=== PATIENT | female | born 1970 | race African-American/Black ===

== ENCOUNTER 2016-09-08 16:11 | Emergency (ER) | payer BC ==
[~2016-09-08] VITALS: Ht 152.4 cm; Wt 68.0 kg
[~2016-09-08 16:11] MED LIST: ALBU8.5H6 IH; BYSTOLIC5 MG PO; TRAM50TA PO
[2016-09-08 16:26] VITALS: BP 187/94
[2016-09-08] MEDS ORDERED: IV NORMAL SALINE 1000ML BAG 1,000 ML IV ONE (16:30)
[2016-09-08] MEDS ORDERED: PROCHLORPERAZINE 10 MG/2 ML VIAL. IV ONE (16:30)
[2016-09-08] MEDS ORDERED: diphenhydrAMINE 50 MG/ML VIAL IVP ONE (16:30)
[2016-09-08] MEDS ORDERED: KETOROLAC TROMETHAMINE 30 MG/ML INJ. IV ONE (16:30)
--- NOTE | 2016-09-08 16:40 | PHYS DOC ---
Past Medical History Past Medical History: Fibromyalgia, Hypertension, Migraines Past Surgical History: Cholecystectomy, Hysterectomy, Tonsillectomy Alcohol Use: None Drug Use: None Adult General Chief Complaint Chief Complaint: HEADACHE HPI HPI Patient is a 46 year old female who presents with headache. Patient reports onset of headache around noon today. Headache is generalized, throbbing/aching. Reports photophobia and phonophobia, nausea, blurred vision, numbness and tingling in her fingers bilaterally. She denies fevers or chills, neck stiffness , chest pain, shortness of breath, extremity weakness, edema. Not sudden in onset, not the worst headache of her life. Last similarly severe headache requiring emergency department visit was about one year ago. She has history of hypertension but has not been taking medication for at least 6 months. Also has history of migraines and fibromyalgia. Previously prescribed Topamax but does not currently have a prescription. She has a PCP at [facility]. Review of Systems Review of Systems Constitutional: Denies fever or chills Eyes: Reports blurred vision HENT: Denies nasal congestion or sore throat Respiratory: Denies cough or shortness of breath Cardiovascular: Denies chest pain or edema GI: Reports nausea. Denies abdominal pain, vomiting, bloody stools or diarrhea Musculoskeletal: Denies back pain or joint pain Integument: Denies rash or skin lesions Neurologic: Reports headache, denies focal weakness or sensory changes Current Medications Current Medications Current Medications Medications (Trade) Dose Ordered Sig/Antony Start Time Stop Time Status Last Admin Dose Admin Diphenhydramine HCl (Benadryl) 25 mg 1X ONCE 09/08/16 16:30 09/08/16 16:31 DC 09/08/16 17:19 25 MG Ketorolac Tromethamine (Toradol) 30 mg 1X ONCE 09/08/16 16:30 09/08/16 16:31 DC 09/08/16 17:18 30 MG Potassium Chloride (KCl Oral Soln) 40 meq 1X ONCE 09/08/16 18:00 09/08/16 18:01 DC 09/08/16 18:48 40 MEQ Prochlorperazine Edisylate (Compazine) 10 mg 1X ONCE 09/08/16 16:30 09/08/16 16:31 DC 09/08/16 17:18 10 MG Sodium Chloride 1,000 ml @ 1,000 mls/hr 1X ONCE 09/08/16 16:30 09/08/16 17:29 DC 09/08/16 16:30 1,000 MLS/HR Allergies Allergies Allergies Coded Allergies Type Severity Reaction Last Updated Verified No Known Drug Allergies 06/25/13 No Physical Exam Physical Exam Constitutional: Well developed, well nourished, no acute distress, non-toxic appearance. HENT: Normocephalic, atraumatic, bilateral external ears normal, oropharynx moist, nose normal. Eyes: PERRLA, EOMI, conjunctiva normal, no discharge. Neck: supple, no stridor. no nuchal rigidity Cardiovascular: RRR, no murmurs, no edema. Lungs & Thorax: LCTAB, no wheezing, no respiratory distress. Abdomen: soft, nontender, nondistended. Skin: Warm, dry, no erythema, no rash. Back: No tenderness. Extremities: No tenderness, no edema. Neurologic: Alert and oriented X 3, CN2-12 grossly intact, symmetric strength/ sensation to UE & LE, no focal deficits noted. Psychologic: Affect normal, judgement normal, mood normal. Current Patient Data Vital Signs Vital Signs Date Time Temp Pulse Resp B/P (MAP) Pulse Ox O2 Delivery O2 Flow Rate FiO2 09/08/16 16:26 97.8 76 20 187/94 (125) 97 Room Air 97.8 Lab Values Laboratory Tests Test 09/08/16 15:29 09/08/16 17:25 POC Urine HCG, Qualitative Hcg negative (Negative) White Blood Count 10.6 x10^3/uL (4.0-11.0) Red Blood Count 4.64 x10^6/uL (3.50-5.40) Hemoglobin 13.7 g/dL (12.0-15.5) Hematocrit 40.9 % (36.0-47.0) Mean Corpuscular Volume 88 fL (79-100) Mean Corpuscular Hemoglobin 30 pg (25-35) Mean Corpuscular Hemoglobin Concent 34 g/dL (31-37) Red Cell Distribution Width 13.7 % (11.5-14.5) Platelet Count 235 x10^3/uL (140-400) Neutrophils (%) (Auto) 86 % (31-73) H Lymphocytes (%) (Auto) 9 % (24-48) L Monocytes (%) (Auto) 4 % (0-9) Eosinophils (%) (Auto) 1 % (0-3) Basophils (%) (Auto) 0 % (0-3) Neutrophils # (Auto) 9.0 x10^3uL (1.8-7.7) H Lymphocytes # (Auto) 1.0 x10^3/uL (1.0-4.8) Monocytes # (Auto) 0.5 x10^3/uL (0.0-1.1) Eosinophils # (Auto) 0.1 x10^3/uL (0.0-0.7) Basophils # (Auto) 0.0 x10^3/uL (0.0-0.2) Segmented Neutrophils % 83 % (35-66) H Band Neutrophils % 2 % (0-9) Lymphocytes % 12 % (24-48) L Monocytes % 3 % (0-10) Toxic Granulation Slight Toxic Vacuolation Slight Platelet Estimate Adequate (ADEQUATE) Urine Collection Type Unknown Urine Color Straw Urine Clarity Clear Urine pH 7.5 Urine Specific [place] <=1.005 Urine Protein Negative mg/dL (NEG-TRACE) Urine Glucose (UA) Negative mg/dL (NEG) Urine Ketones (Stick) Negative mg/dL (NEG) Urine Blood Negative (NEG) Urine Nitrite Negative (NEG) Urine Bilirubin Negative (NEG) Urine Urobilinogen Dipstick 0.2 mg/dL (0.2 mg/dL) Urine Leukocyte Esterase Negative (NEG) Urine RBC 0 /HPF (0-2) Urine WBC 0 /HPF (0-4) Urine Squamous Epithelial Cells Few /LPF Urine Bacteria Few /HPF (0-FEW) Sodium Level 143 mmol/L (136-145) Potassium Level 3.3 mmol/L (3.5-5.1) L Chloride Level 106 mmol/L (98-107) Carbon Dioxide Level 28 mmol/L (21-32) Anion Gap 9 (6-14) Blood Urea Nitrogen 8 mg/dL (7-20) Creatinine 0.7 mg/dL (0.6-1.0) Estimated GFR (Cockcroft-Gault) 110.0 Glucose Level 124 mg/dL (70-99) H Calcium Level 8.9 mg/dL (8.5-10.1) Laboratory Tests 09/08/16 17:25 Laboratory Tests 09/08/16 17:25 EKG EKG [] Radiology/Procedures Radiology/Procedures PROCEDURE: CT HEAD WO CONTRAST Indication hypertension. Headache. Noncontrast images of the head were obtained. No prior imaging of the head is available. The study is very slightly degraded by motion. The calvarium appears unremarkable and the visualized paranasal sinuses appear normal. There is no subdural or epidural hematoma. Ventricles and sulci are normal. No mass or midline shift is seen. No hemorrhage is apparent. Acute intracranial finding is not seen. IMPRESSION: Slightly limited study. No acute intracranial finding PQRS Compliance Statement: One or more of the following individualized dose reduction techniques were utilized for this examination: 1. Automated exposure control 2. Adjustment of the mA and/or kV according to patient size 3. Use of iterative reconstruction technique DICTATED and SIGNED BY: BRIAN MISTRY MD DATE: 09/08/161655[] Course & Med Decision Making Course & Med Decision Making Pertinent Labs and Imaging studies reviewed. (See chart for details) Patient presents with headache & hypertension. Similar to previous migraine headache, but BP quite elevated. Offered CT to rule out more serious pathology & she did wish to proceed. This was negative for acute process though study was limited by movement. Gave IV fluids, compazine, benadryl, toradol. Her symptoms improved & she felt better. BP improved to 139/85. She would like to go home. Recommend rest, PO hydration, tylenol/ibuprofen for headache. She would like to resume topamax & bystolic, so I did write prescriptions for 2 week supply, make appointment with primary care within 2-3 days for follow up & skilled nursing management. Come back for worst headache of her life or sudden onset severe headache, chest pain, SOB, focal neuro deficit, any otherwise worsening condition. Discharged home in stable & improved condition. [] Dragon Disclaimer Dragon Disclaimer This electronic medical record was generated, in whole or in part, using a voice recognition dictation system. Departure Departure Impression: Primary Impression: Headache Additional Impressions: Essential hypertension Hypokalemia Disposition: 01 HOME, SELF-CARE Condition: IMPROVED Referrals: LUIS ALVARADO (PCP) Patient Instructions: Hypertension, [id number], Migraine Headache, Easy-to- Read Additional Instructions: You were seen in the emergency department today for headache. Tests here did not show a serious cause of symptoms. This may be recurrent severe migraine headache. Your symptoms improved here with treatment. Please rest, drink, use topamax as needed for recurrence of symptoms. Resume taking bystolic for hypertension. Follow up with primary care physician in 2-3 days. Come back for worst headache of your life, sudden onset severe headache, uncontrolled vomiting, severe chest pain or shortness of breath, numbness or weakness of arms or legs on 1 side of your body, any otherwise worsening condition. Scripts Nebivolol Hcl (BYSTOLIC) 5 Mg Tablet 5 MG PO DAILY for 14 Days, #14 TAB Prov: ADEEL PATTERSON MD 09/08/16 Topiramate (TOPAMAX) 25 Mg Tablet 25 MG PO BID for 14 Days, #28 TAB Prov: ADEEL PATTERSON MD 09/08/16 Problem Qualifiers ADEEL PATTERSON MD September 08, 2016 16:40
--- NOTE | 2016-09-08 17:02 | RAD ---
Indication hypertension. Headache. Noncontrast images of the head were obtained. No prior imaging of the head is available. The study is very slightly degraded by motion. The calvarium appears unremarkable and the visualized paranasal sinuses appear normal. There is no subdural or epidural hematoma. Ventricles and sulci are normal. No mass or midline shift is seen. No hemorrhage is apparent. Acute intracranial finding is not seen. IMPRESSION: Slightly limited study. No acute intracranial finding PQRS Compliance Statement: One or more of the following individualized dose reduction techniques were utilized for this examination: 1. Automated exposure control 2. Adjustment of the mA and/or kV according to patient size 3. Use of iterative reconstruction technique
[2016-09-08 17:35] LABS: BASO % 0 % (0-3); EOS % 1 % (0-3); HEMATOCRIT 40.9 % (36.0-47.0); HEMOGLOBIN 13.7 g/dL (12.0-15.5); LYMPH % 9 % (24-48); MEAN CORPUSCULAR HEMOGLOBIN 30 pg (25-35); MEAN CORPUSCULAR HGB CONC 34 g/dL (31-37); MEAN CORPUSCULAR VOLUME 88 fL (79-100); MONO % 4 % (0-9); NEUT % 86 % (31-73); PLATELET COUNT 235 x10^3/uL (140-400); RED BLOOD COUNT 4.64 x10^6/uL (3.50-5.40); RED CELL DISTRIBUTION WIDTH 13.7 % (11.5-14.5); WHITE BLOOD COUNT 10.6 x10^3/uL (4.0-11.0)
[2016-09-08 17:38] LABS: BILIRUBIN,URINE NEGATIVE (NEG); GLUCOSE,URINE NEGATIVE (NEG); NITRITE,URINE NEGATIVE (NEG); PH,URINE 7.5; PROTEIN,URINE NEGATIVE (NEG-TRACE); UROBILINOGEN,URINE 0.2 mg/dL (0.2 mg/dL)
[2016-09-08 17:46] LABS: CALCIUM 8.9 mg/dL (8.5-10.1); CREATININE 0.7 mg/dL (0.6-1.0); POTASSIUM 3.3 mmol/L (3.5-5.1)
[2016-09-08 17:52] LABS: BACTERIA,URINE FEW /HPF (0-FEW); RBC,URINE 0 /HPF (0-2); SQUAMOUS EPITHELIAL CELL,UR FEW /LPF; WBC,URINE 0 /HPF (0-4)
[2016-09-08] MEDS ORDERED: POTASSIUM CHLORIDE 20 MEQ/15 ML ORAL LIQUID. PO ONE (18:00)
[2016-09-08 18:14] LABS: PLT ESTIMATE ADEQUATE (ADEQUATE); TOXIC GRANULATION SLIGHT; TOXIC VACUOLATION SLIGHT
[2016-09-08] MEDS ORDERED: TOPI25TA32 PO (18:19)
[2016-09-08] MEDS ORDERED: BYSTOLIC5 MG PO (18:19)
== END 2016-09-08 18:38 | disposition home or self-care (01) ==
LOC: ER 16:11
DX: R51 Headache (principal); I10 Essential (primary) hypertension; E87.6 Hypokalemia; G43.909 Migraine, unspecified, not intractable, without status migrainosus; M79.7 Fibromyalgia
CPT/HCPCS: 36415; 70450; 80048; 81001; 84703; 85007; 85027; 96361; 96374; 96375; 99285; J0780; J1200; J1885; J7030; 81025

== ENCOUNTER 2017-09-05 22:38 | Emergency (ER) | payer BC ==
[2017-09-05 23:09] LABS: ADD MAN DIFF? NO
[2017-09-05 23:15] LABS: BASO % 0 % (0-3); EOS # 0.1 x10^3/uL (0.0-0.7); EOS % 1 % (0-3); HEMATOCRIT 40.4 % (36.0-47.0); HEMOGLOBIN 14.1 g/dL (12.0-15.5); LYMPH # 1.6 x10^3/uL (1.0-4.8); LYMPH % 12 % (24-48); MEAN CORPUSCULAR HEMOGLOBIN 30 pg (25-35); MEAN CORPUSCULAR HGB CONC 35 g/dL (31-37); MEAN CORPUSCULAR VOLUME 87 fL (79-100); MONO # 0.4 x10^3/uL (0.0-1.1); MONO % 3 % (0-9); NEUT % 84 % (31-73); PLATELET COUNT 225 x10^3/uL (140-400); RED BLOOD COUNT 4.64 x10^6/uL (3.50-5.40); RED CELL DISTRIBUTION WIDTH 13.6 % (11.5-14.5); WHITE BLOOD COUNT 13.2 x10^3/uL (4.0-11.0)
[2017-09-05] MEDS: IV NORMAL SALINE 1000ML BAG 1,000 ML IV (23:24)
[2017-09-05] MEDS: METOCLOPRAMIDE HCL 10 MG/2 ML VIAL. IV (23:25)
[2017-09-05] MEDS: diphenhydrAMINE 50 MG/ML VIAL IVP (23:26)
[2017-09-05] MEDS: KETOROLAC 30 MG/ML INJ. IV (23:26)
[2017-09-05 23:52] LABS: ANION GAP 10 (6-14); BLOOD UREA NITROGEN 10 mg/dL (7-20); BUN/CREATININE RATIO 14 (6-20); CALCIUM 8.8 mg/dL (8.5-10.1); CARBON DIOXIDE 28 mmol/L (21-32); CHLORIDE 104 mmol/L (98-107); CREATININE 0.7 mg/dL (0.6-1.0); GFR 109.5; GLUCOSE 128 mg/dL (70-99); POTASSIUM 3.7 mmol/L (3.5-5.1); SODIUM 142 mmol/L (136-145)
[2017-09-06] LABS: ALBUMIN 3.8 g/dL (3.4-5.0); ALK PHOS 73 U/L (46-116); ALT (SGPT) 21 U/L (14-59); AST (SGOT) 14 U/L (15-37); TOTAL BILIRUBIN 0.4 mg/dL (0.2-1.0); TOTAL PROTEIN 7.6 g/dL (6.4-8.2)
[2017-09-06 00:02] LABS: TROPONINI < 0.017 ng/mL (0.000-0.055)
[2017-09-06 00:04] LABS: NT-PRO BNP 111 pg/mL (0-124)
== END 2017-09-06 00:23 | disposition home or self-care (01) ==
LOC: ER 09-06 00:23
DX: G44.59 Other complicated headache syndrome (principal); J45.909 Unspecified asthma, uncomplicated; I10 Essential (primary) hypertension; Z90.49 Acquired absence of other specified parts of digestive tract; Z90.710 Acquired absence of both cervix and uterus
CPT/HCPCS: 36415; 71045; 80053; 83880; 84484; 85025; 93005; 96374; 96375; 99285; J1200; J1885; J2765; J7030

== ENCOUNTER 2018-11-29 13:10 | Emergency (ER) | payer SELFPAY ==
[~2018-11-29] VITALS: Ht 152.4 cm; Wt 72.6 kg
[~2018-11-29 13:10] MED LIST changes: +TOPI25TA52 PO
--- NOTE | 2018-11-29 15:01 | EKG ---
[facility] [address] [place] [address] Test Date: 2018-11-29 Test Time: 14:01:53 Pat Name: KRISTA DOWNS Department: Room: Gender: F Receiver/Laborer: : 1970 Requested By: STAFF NON Order Number: [id number] Reading MD: Measurements Intervals [place] Rate: 69 P: 28 HI: 168 QRS: -13 QRSD: 88 T: 9 QT: 418 QTc: 449 Interpretive Statements SINUS RHYTHM LEFTWARD AXIS NO SPECIFIC ECG ABNORMALITIES RI6.01 No previous ECG available for comparison
[2018-11-29] MEDS ORDERED: LIDOCAINE 2% 20 ML VIAL. IJ ONE (15:30)
[2018-11-29] MEDS ORDERED: diphenhydrAMINE 50 MG/ML VIAL IVP ONE (15:30)
[2018-11-29] MEDS ORDERED: KETOROLAC 15 MG/ML VIAL. IV ONE (15:30)
[2018-11-29] MEDS ORDERED: PROCHLORPERAZINE 10 MG/2 ML VIAL. IV ONE (15:30)
--- NOTE | 2018-11-29 15:38 | PHYS DOC ---
Past Medical History Past Medical History: Anxiety, Asthma, Hypertension, Other Additional Past Medical Histor: BORDERLINE DM Past Surgical History: Cholecystectomy, Hysterectomy, Tonsillectomy Alcohol Use: Rarely Drug Use: None Adult General Chief Complaint Chief Complaint: DIZZY/LIGHT HEADED HPI HPI Patient is a 48 year old female who presents with headache, light sensitivity, and bilateral blurry vision that has been ongoing since 11:30 AM. The patient states that she gets a really bad migraine around once a year. The patient states that this feels like one of her migraines. Not take any medication prior to arrival. The patient states that her pain as 7 out of 10 in severity and th robbing. Review of Systems Review of Systems Constitutional: Denies fever or chills [] Eyes: Reports light sensitivity, and bilateral blurry vision. HENT: Denies nasal congestion or sore throat [] Respiratory: Denies cough or shortness of breath [] Cardiovascular: No additional information not addressed in HPI [] GI: Denies abdominal pain, nausea, vomiting, bloody stools or diarrhea [] : Denies dysuria or hematuria [] Musculoskeletal: Denies back pain or joint pain [] Integument: Denies rash or skin lesions [] Neurologic: Reports headache Endocrine: Denies polyuria or polydipsia [] Complete systems were reviewed and found to be within normal limits, except as documented in this note. Current Medications Current Medications Current Medications Medications (Trade) Dose Ordered Sig/Antony Start Time Stop Time Status Last Admin Dose Admin Diphenhydramine HCl (Benadryl) 25 mg 1X ONCE 11/29/18 15:30 11/29/18 15:31 DC 11/29/18 15:52 25 MG Ketorolac Tromethamine (Toradol 15mg Vial) 15 mg 1X ONCE 11/29/18 15:30 11/29/18 15:31 DC 11/29/18 15:52 15 MG Lidocaine HCl 20 ml 1X ONCE 11/29/18 15:30 11/29/18 15:31 DC 11/29/18 15:51 20 ML Prochlorperazine Edisylate (Compazine) 10 mg 1X ONCE 11/29/18 15:30 11/29/18 15:31 DC 11/29/18 15:52 10 MG Allergies Allergies Allergies Coded Allergies Type Severity Reaction Last Updated Verified Sulfa (Sulfonamide Antibiotics) Allergy Intermediate Rash 11/29/18 Yes Physical Exam Physical Exam Constitutional: Well developed, well nourished, no acute distress, non-toxic appearance. [] HENT: Normocephalic, atraumatic, bilateral external ears normal, oropharynx moist, no oral exudates, nose normal. [] Eyes: PERRLA, EOMI, conjunctiva normal, no discharge, covering eyes in room with light off. Neck: Normal range of motion, no tenderness, supple, no stridor. [] Cardiovascular:Heart rate regular rhythm, no murmur [] Lungs & Thorax: Bilateral breath sounds clear to auscultation [] Abdomen: Bowel sounds normal, soft, no tenderness, no masses, no pulsatile masses. [] Skin: Warm, dry, no erythema, no rash. [] Back: No tenderness, no CVA tenderness. [] Extremities: No tenderness, no cyanosis, no clubbing, ROM intact, no edema. [] Neurologic: Alert and oriented X 3, normal motor function, normal sensory function, no focal deficits noted. [] Psychologic: Affect normal, judgement normal, mood normal. [] Current Patient Data Vital Signs Vital Signs Date Time Temp Pulse Resp B/P (MAP) Pulse Ox O2 Delivery O2 Flow Rate FiO2 11/29/18 14:36 97.7 84 18 128/76 (93) 100 Room Air 97.7 EKG EKG [] Radiology/Procedures Radiology/Procedures [] Course & Med Decision Making Course & Med Decision Making Pertinent Labs and Imaging studies reviewed. (See chart for details) Appears to be migraine. Will give intranasal lidocaine, toradol, compazine, and benadryl to help headache. Intranasal lidocaine improved headache from 6 to 2. Nursing gave headache cocktail to improve from 2 to 0. Will d/c home. Dragon Disclaimer Dragon Disclaimer This electronic medical record was generated, in whole or in part, using a voice recognition dictation system. Departure Departure Impression: Primary Impression: Headache Disposition: HOME, SELF-CARE Condition: STABLE Referrals: UNKNOWN PCP NAME (PCP) Patient Instructions: Migraine Headache Additional Instructions: Thank you for visiting [facility]. We appreciate you trusting us with your care. If any additional problems come up don't hesitate to return to visit us. Please follow up with your primary care provider so they can plan additional care if needed and know about the problem that you had. If symptoms worsen come back to the Emergency Department. Any concerning symptoms that start such as chest pain, shortness of air, weakness or numbness on one side of the body, running high fevers or any other concerning symptoms return to the ER. Problem Qualifiers Primary Impression: Headache Headache type: unspecified Headache chronicity pattern: unspecified pattern Intractability: not intractable Qualified Codes: R51 - Headache BONIFACIO STERN APRN Nov 29, 2018 15:38
[2018-11-29 16:23] VITALS: BP 134/75
== END 2018-11-29 16:29 | disposition home or self-care (01) ==
LOC: ER 13:10
DX: R51 Headache (principal); R42 Dizziness and giddiness; F41.9 Anxiety disorder, unspecified; J45.909 Unspecified asthma, uncomplicated; I10 Essential (primary) hypertension; Z90.49 Acquired absence of other specified parts of digestive tract; Z90.710 Acquired absence of both cervix and uterus; Z90.89 Acquired absence of other organs; Z88.2 Allergy status to sulfonamides
CPT/HCPCS: 93005; 96374; 96375; 99284; J0780; J1200; J1885; J2001; 99283